=== PATIENT | male | born 2000 | race Caucasian/White ===

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

== ENCOUNTER 2019-07-04 12:24 | Emergency (ER) | payer MEDICAID, OTHER ==
[~2019-07-04] VITALS: Ht 180.3 cm; Wt 113.4 kg
[2019-07-04 12:44] VITALS: BP_SYST 130
--- NOTE | 2019-07-04 12:47 | NUR ---
Patient triaged and placed in waiting room. VSS and patient appears in no acute distress at this time. Accompanied by SELF, awaiting available bed, and MD notified of need for MSE.
--- NOTE | 2019-07-04 13:34 | NUR ---
Placed in chair 1 hallway. MSE completed by myself.
--- NOTE | 2019-07-04 13:35 | NUR ---
Patient arrived in the ED c/o flu-like symptoms that started 3 days ago. Denied any chest pain or shortness of breath. Denied any fevers, nausea, vomiting, or chills. Patient is alert and oriented x4, respirations even and unlabored, speaking in full sentences, ambulating with a steady gait. VSS, pain level 6/10. Informed of wait time. Instructed to notify ED staff for any changes in condition or worsening of symptoms. Patient verbalized understanding.
[2019-07-04 14:06] VITALS: BP_SYST 130
--- NOTE | 2019-07-04 14:06 | NUR ---
Patient given written and verbal discharge instructions and verbalizes understanding. ER MD discussed with patient the results and treatment provided. Patient in stable condition. ID arm band removed. Rx of Promethazine, Albuterol, Motrin, Tylenol Extra, Zofran given. Patient educated on pain management and to follow up with PMD. Pain Scale 0/10. Opportunity for questions provided and answered. Medication side effect fact sheet provided.
== END 2019-07-04 14:06 | disposition home or self-care (01) ==
LOC: SED 12:24
DX: B34.9 Viral infection, unspecified (principal); R03.0 Elevated blood-pressure reading, without diagnosis of hypertension
CPT/HCPCS: 99283